=== PATIENT | female | born 1940 | race Caucasian/White ===

== ENCOUNTER 2018-12-03 23:49 | Emergency (ER) | payer MEDICARE ==
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
[2018-12-04 00:21] LABS: ABS Basophils 0.1 10^3/ul (0-0.2); ABS Eosinophils 0.2 10^3/ul (0-0.6); ABS Lymphocytes 1.8 10^3/ul (1.0-4.8); ABS Monocytes 0.6 10^3/ul (0-0.8); Eosinophil % 2.3 %; Hematocrit 37 % (35-47); Hemoglobin 12.3 g/dL (12.0-16.0); Lymphocyte % 17.1 %; Mean Corpuscular HGB Conc 34 g/dL (31-36); Mean Corpuscular Hemoglobin 32 pg (27-31); Mean Corpuscular Volume 96 fL (80-97); Platelet Count 263 10^3/uL (150-450); Red Blood Count 3.82 10^6 /uL (3.70-4.87); Red Cell Distribution Width 14 % (10-15); White Blood Count 10.7 10^3/uL (3.5-10.8)
[2018-12-04 00:28] LABS: INR 0.97 (0.82-1.09)
[2018-12-04 00:36] LABS: ALT 4 U/L (7-52); AST 11 U/L (13-39); Albumin 4.1 g/dL (3.2-5.2); Albumin/Globulin Ratio 1.3 (1-3); Alkaline Phosphatase 71 U/L (34-104); Anion Gap 9 mmol/L (2-11); Blood Urea Nitrogen 27 mg/dL (6-24); CO2 Carbon Dioxide 25 mmol/L (22-32); Calcium 9.1 mg/dL (8.6-10.3); Chloride 103 mmol/L (101-111); EGFR African American 40.7 (>60); EGFR Non-African American 33.7 (>60); Globulin 3.2 g/dL (2-4); Glucose 146 mg/dL (70-100); Potassium 3.9 mmol/L (3.5-5.0); Sodium 137 mmol/L (135-145); Total Protein 7.3 g/dL (6.4-8.9)
[2018-12-04 01:13] LABS: Alcohol < 10 mg/dL (<10)
[2018-12-04 01:29] LABS: TSH (Thyroid Stimulating Horm) 4.45 mcIU/mL (0.34-5.60)
[2018-12-04 01:52] LABS: Urine Appearance Clear; Urine Bacteria 3+ (Absent); Urine Bilirubin Negative (Negative); Urine Blood 1+ (Negative); Urine Color Straw; Urine Glucose Negative (Negative); Urine Ketones Negative (Negative); Urine Nitrite Positive (Negative); Urine Protein Negative (Negative); Urine Red Blood Cell Trace(0-2/hpf) (Absent); Urine Specific Gravity 1.003 (1.010-1.030); Urine Squamous Epithelial Cell Present (Absent); Urine Urobilinogen Negative (Negative); Urine White Blood Cell 1+(6-10/hpf) (Absent)
[2018-12-04] MEDS ORDERED: Cephalexin CAP* 500 MG PO ONE (01:54)
[2018-12-04 04:18] VITALS: BP 130/68
--- NOTE | 2018-12-06 06:05 | ED ---
Imaging and Labs Follow Up Follow Up Type: Labs/Cultures Labs/Culture Result: e coli 75,000 Patient Communication/Plan: pt placed on keflex prior to discharge Patient Communication/Plan: will await sensitivities Provider Diagnoses: UTI (urinary tract infection), Dementia with behavioral disturbance
== END 2018-12-04 04:13 | disposition home or self-care (01) ==
LOC: ED 23:49
DX: N39.0 Urinary tract infection, site not specified (principal); F03.90 Unspecified dementia, unspecified severity, without behavioral disturbance, psychotic disturbance, mood disturbance, and anxiety; F91.9 Conduct disorder, unspecified; I10 Essential (primary) hypertension
CPT/HCPCS: 36415; 80053; 80320; 81003; 81015; 83605; 84443; 85025; 85610; 87077; 87086; 87186; 99283; A9270-GY; G0480

== ENCOUNTER 2021-03-17 01:01 | Observation (INO) ==
[2021-03-17 03:35] LABS: ABS Lymphocytes 1.2 10^3/ul (1.0-4.8); ABS Monocytes 0.7 10^3/ul (0-0.8); Hematocrit 37 % (35-47); Hemoglobin 12.5 g/dL (12.0-16.0); Lymphocyte % 13.2 %; Mean Corpuscular HGB Conc 34 g/dL (31-36); Mean Corpuscular Hemoglobin 34 pg (27-31); Mean Corpuscular Volume 100 fL (80-97); Mean Platelet Volume 9.3 fL (7.4-10.4); Platelet Count 247 10^3/uL (150-450); Red Blood Count 3.69 10^6 /uL (3.70-4.87); Red Cell Distribution Width 14 % (10-15)
[2021-03-17 03:54] LABS: Anion Gap 11 mmol/L (2-11); Blood Urea Nitrogen 28 mg/dL (6-24); CO2 Carbon Dioxide 26 mmol/L (22-32); Calcium 9.3 mg/dL (8.6-10.3); Chloride 103 mmol/L (101-111); Glucose 164 mg/dL (70-100); Potassium 3.9 mmol/L (3.5-5.0); Sodium 140 mmol/L (135-145); eGFR CKD-EPI 44.4 (>60)
[2021-03-17 04:11] LABS: Troponin I 0.05 ng/mL (<0.03)
[2021-03-17] MEDS ORDERED: Lactated Ringers 500 ml BAG 500 ML IV ONE ×2 (05:58→08:42)
[2021-03-17 07:16] LABS: Troponin I 0.05 ng/mL (<0.03)
[2021-03-17 09:08] LABS: Urine Appearance Cloudy; Urine Bilirubin Negative (Negative); Urine Blood Negative (Negative); Urine Color Yellow; Urine Glucose Negative (Negative); Urine Ketones Trace (Negative); Urine Nitrite Negative (Negative); Urine Protein 2+(100 mg/dL) (Negative); Urine Specific Gravity 1.018 (1.002-1.030); Urine Urobilinogen Negative (Negative)
[2021-03-17 09:15] LABS: Urine Bacteria 1+ (Absent); Urine Red Blood Cell Trace(0-2/hpf) (Absent); Urine Squamous Epithelial Cell Present (Absent); Urine White Blood Cell Trace(0-5/hpf) (Absent)
[2021-03-17] MEDS ORDERED: Iodixanol (CONTRAST) 320 MG/ML 100 ML SDV IV ONE (09:21)
[2021-03-17] MEDS ORDERED: Magnesium Hydroxide LIQ 30 ML UDC PO PRN (10:52)
[2021-03-17] MEDS ORDERED: Dextrose 50% Syringe 50 ml 25 GM/50 ML SYRINGE IV PUSH PRN (11:10)
[2021-03-17] MEDS ORDERED: Remdesivir 100 mg Vial 200 MG in NS 0.9% 250 ml 210 ML IV ONE (12:00)
[2021-03-17] MEDS: Enoxaparin 40 MG/0.4 ML SYR SUBCUT SCH (13:28)
[2021-03-17 14:04] LABS: INR 1.12 (0.86-1.15)
[2021-03-17 14:11] LABS: Albumin 4.1 g/dL (3.2-5.2); Albumin/Globulin Ratio 1.1 (1-3); Calcium 9.1 mg/dL (8.6-10.3); Globulin 3.6 g/dL (2-4); Potassium 4.2 mmol/L (3.5-5.0); Total Bilirubin 0.6 mg/dL (0.2-1.0); Total Protein 7.7 g/dL (6.4-8.9); eGFR CKD-EPI 47.7 (>60)
[2021-03-18 06:48] LABS: INR 1.1 (0.86-1.15)
[2021-03-18 06:54] LABS: Albumin 3.8 g/dL (3.2-5.2); Albumin/Globulin Ratio 1.2 (1-3); Calcium 8.7 mg/dL (8.6-10.3); Globulin 3.3 g/dL (2-4); Potassium 3.9 mmol/L (3.5-5.0); Total Bilirubin 0.5 mg/dL (0.2-1.0); Total Protein 7.1 g/dL (6.4-8.9); eGFR CKD-EPI 50.2 (>60)
[2021-03-18] MEDS ORDERED: Dextrose 50% Syringe 50 ml 25 GM/50 ML SYRINGE IV PUSH PRN (07:21)
[2021-03-18] MEDS ORDERED: Remdesivir 100 mg Vial 100 MG in NS 0.9% 250 ml 230 ML IV SCH (09:00)
[2021-03-18] MEDS: Enoxaparin 40 MG/0.4 ML SYR SUBCUT SCH (09:07)
[2021-03-18 12:06] VITALS: BP 148/67
== END 2021-03-18 20:00 | DRG 177 ==
LOC: ED 01:01 → INTOOBSV 11:21 → EDHOLD 11:21 → SUATTDRO 11:21 → MED 14:35
PROVIDERS: ADMIT Internal Medicine; ATTEND Student in an Organized Health Care Education/Training Program